=== PATIENT | female | born 1945 | race Two or more races ===

== ENCOUNTER 2017-03-23 12:50 | Emergency (ER) | payer MEDICARE, OTHER ==
[2017-03-23] MEDS ORDERED: DIAZEPAM 5 MG/ML 2 ML INJ IVP STA (13:24)
[2017-03-23] MEDS ORDERED: MECLIZINE 25 MG TAB PO STA (13:24)
--- NOTE | 2017-03-23 13:26 | ED ---
General Adult HPI - General Chief complaint: Dizziness Stated complaint: dizziness Time Seen by Provider: 03/23/17 13:00 Source: patient, RN notes reviewed Mode of arrival: ambulatory Limitations: no limitations - History of Present Illness Initial comments: This is a 71-year-old female presents emergency department with past medical history significant for diabetes. Patient does not speak any [place]ian and daughter only speaks broken Pan[place]ian. From what I can gather the patient has been experiencing some dizzy spells today not the sensation that she's passing out but that she might fall over without grabbing onto something. Patient states she also has a slight right-sided headache as well as some mild nausea. Patient denies any recent fever chills or cough. Patient denies any recent trauma or injury. Patient denies any chest pain palpitations difficulty breathing or shortness of breath per patient denies any abdominal pain patient denies any vomiting or diarrhea. Patient denies any back pain. Patient denies any extremity pain or lack of range of motion. - Related Data Home Medications Medication Instructions Recorded Confirmed Aspirin EC [Ecotrin Low Dose] 81 mg PO DAILY 03/23/17 03/23/17 Butalb/Acetaminophen/Caffeine 1 - 2 tab PO DAILY PRN 03/23/17 03/23/17 [Fioricet 50-325-40] Citalopram Hydrobromide [CeleXA] 20 mg PO DAILY 03/23/17 03/23/17 Esomeprazole Magnesium 40 mg PO DAILY 03/23/17 03/23/17 Insulin Glargine,Hum.rec.anlog 20 unit SQ HS 03/23/17 03/23/17 [Lantus Solostar] Insulin Glargine,Hum.rec.anlog 100 unit SQ DAILY 03/23/17 03/23/17 [Lantus Solostar] Lisinopril [Zestril] 10 mg PO DAILY 03/23/17 03/23/17 Loratadine [Claritin] 10 mg PO HS 03/23/17 03/23/17 Pioglitazone [Actos] 30 mg PO DAILY 03/23/17 03/23/17 chlordiazePOXIDE HCL 25 mg PO BID 03/23/17 03/23/17 glyBURIDE/METFORMIN HCL 1 tab PO AC-BID 03/23/17 03/23/17 [glyBURIDE/METFORMIN HCL 5-500 mg] Previous Rx's Medication Instructions Recorded Meclizine [Antivert] 25 mg PO TID #20 tab 03/23/17 Allergies Allergy/AdvReac Type Severity Reaction Status Date / Time No Known Allergies Allergy Verified 03/23/17 13:00 Review of Systems ROS Statement: Those systems with pertinent positive or pertinent negative responses have been documented in the HPI. ROS Other: All systems not noted in ROS Statement are negative. Past Medical History Past Medical History: Diabetes Mellitus History of Any Multi-Drug Resistant Organisms: None Reported Past Surgical History: Section Past Psychological History: No Psychological Hx Reported Smoking Status: Never smoker Past Alcohol Use History: None Reported Past Drug Use History: None Reported General Exam - General Exam Comments Initial Comments: GENERAL: Patient is well-developed and well-nourished. Patient is nontoxic and well- hydrated and is in no acute distress. ENT: Neck is soft and supple. No significant lymphadenopathy is noted. Oropharynx is clear. Moist mucous membranes. Neck has full range of motion without eliciting any pain. EYES: The sclera were anicteric and conjunctiva were pink and moist. Extraocular movements were intact and pupils were equal round and reactive to light. Eyelids were unremarkable. PULMONARY: Unlabored respirations. Good breath sounds bilaterally. No audible rales rhonchi or wheezing was noted. CARDIOVASCULAR: There is a regular rate and rhythm without any murmurs gallops or rubs. ABDOMEN: Soft and nontender with normal bowel sounds. No palpable organomegaly was noted. There is no palpable pulsatile mass. SKIN: Skin is clear with no lesions or rashes and otherwise unremarkable. NEUROLOGIC: Patient is alert and oriented x3. Cranial nerves II through XII are grossly intact. Motor and sensory are also intact. Normal speech, volume and content. Symmetrical smile. Cerebellar exam grossly intact. MUSCULOSKELETAL: Normal extremities with adequate strength and full range of motion. No lower extremity swelling or edema. No calf tenderness. LYMPHATICS: No significant lymphadenopathy is noted PSYCHIATRIC: Language barrier unable to assess Limitations: no limitations Course Vital Signs 03/23/17 03/23/17 03/23/17 12:56 14:00 15:03 Temperature 98.7 F Pulse Rate 98 87 80 Respiratory 16 16 18 Rate Blood Pressure 122/63 141/72 134/63 O2 Sat by Pulse 98 98 97 Oximetry Medical Decision Making - Medical Decision Making EKG shows normal sinus rhythm at 92 bpm MI interval is 142 QRS is 80 QT interval 370 QTC is 457. Patient's EKG shows no ST segment elevation or depression. CT of the brain shows no acute normalities. Chest x-ray shows no acute abnormality. Patient states the dizziness. But she still has a little bit of pressure in the right side of her head. Patient has no deficit she's no distress and she ambulates without problem. - Lab Data Result diagrams: 03/23/17 13:22 03/23/17 13:22 Lab Results 03/23/17 03/23/17 03/23/17 Range/Units 13:22 13:22 13:22 WBC 4.2 (3.8-10.6) k/uL RBC 4.41 (3.80-5.40) m/uL Hgb 12.5 (11.4-16.0) gm/dL Hct 40.0 (34.0-46.0) % MCV 90.7 (80.0-100.0) fL MCH 28.3 (25.0-35.0) pg MCHC 31.1 (31.0-37.0) g/dL RDW 13.3 (11.5-15.5) % Plt Count 375 (150-450) k/uL Neutrophils % (Manual) 43 % Lymphocytes % (Manual) 49 % Monocytes % (Manual) 7 % Eosinophils % (Manual) 1 % Neutrophils # (Manual) 1.81 (1.3-7.7) k/uL Lymphocytes # (Manual) 2.06 (1.0-4.8) k/uL Monocytes # (Manual) 0.29 (0-1.0) k/uL Eosinophils # (Manual) 0.04 (0-0.7) k/uL Nucleated RBCs 0 (0-0) /100 WBC Manual Slide Review Performed RBC Morphology Normal Hypochromasia Slight PT (9.0-12.0) sec INR (<1.2) APTT (22.0-30.0) sec Sodium 138 (137-145) mmol/L Potassium 4.8 (3.5-5.1) mmol/L Chloride 101 (98-107) mmol/L Carbon Dioxide 26 (22-30) mmol/L Anion Gap 11 mmol/L BUN 21 H (7-17) mg/dL Creatinine 0.67 (0.52-1.04) mg/dL Est GFR (MDRD) Af Amer >60 (>60 ml/min/1.73 sqM) Est GFR (MDRD) Non-Af >60 (>60 ml/min/1.73 sqM) Glucose 288 H (74-99) mg/dL Calcium 9.3 (8.4-10.2) mg/dL Magnesium 1.6 (1.6-2.3) mg/dL Total Bilirubin 0.1 L (0.2-1.3) mg/dL AST 18 (14-36) U/L ALT 28 (9-52) U/L Alkaline Phosphatase 50 (38-126) U/L Total Creatine Kinase 23 L (30-135) U/L CK-MB (CK-2) <0.2 (0.0-2.4) ng/mL CK-MB (CK-2) Rel Index Troponin I <0.012 (0.000-0.034) ng/mL Total Protein 7.1 (6.3-8.2) g/dL Albumin 3.9 (3.5-5.0) g/dL 03/23/17 Range/Units 13:22 WBC (3.8-10.6) k/uL RBC (3.80-5.40) m/uL Hgb (11.4-16.0) gm/dL Hct (34.0-46.0) % MCV (80.0-100.0) fL MCH (25.0-35.0) pg MCHC (31.0-37.0) g/dL RDW (11.5-15.5) % Plt Count (150-450) k/uL Neutrophils % (Manual) % Lymphocytes % (Manual) % Monocytes % (Manual) % Eosinophils % (Manual) % Neutrophils # (Manual) (1.3-7.7) k/uL Lymphocytes # (Manual) (1.0-4.8) k/uL Monocytes # (Manual) (0-1.0) k/uL Eosinophils # (Manual) (0-0.7) k/uL Nucleated RBCs (0-0) /100 WBC Manual Slide Review RBC Morphology Hypochromasia PT 11.2 (9.0-12.0) sec INR 1.1 (<1.2) APTT 24.6 (22.0-30.0) sec Sodium (137-145) mmol/L Potassium (3.5-5.1) mmol/L Chloride (98-107) mmol/L Carbon Dioxide (22-30) mmol/L Anion Gap mmol/L BUN (7-17) mg/dL Creatinine (0.52-1.04) mg/dL Est GFR (MDRD) Af Amer (>60 ml/min/1.73 sqM) Est GFR (MDRD) Non-Af (>60 ml/min/1.73 sqM) Glucose (74-99) mg/dL Calcium (8.4-10.2) mg/dL Magnesium (1.6-2.3) mg/dL Total Bilirubin (0.2-1.3) mg/dL AST (14-36) U/L ALT (9-52) U/L Alkaline Phosphatase (38-126) U/L Total Creatine Kinase (30-135) U/L CK-MB (CK-2) (0.0-2.4) ng/mL CK-MB (CK-2) Rel Index Troponin I (0.000-0.034) ng/mL Total Protein (6.3-8.2) g/dL Albumin (3.5-5.0) g/dL Disposition Clinical Impression: Vertigo, Dehydration Disposition: HOME SELF-CARE Condition: Good Instructions: Vertigo (ED) Prescriptions: Meclizine [Antivert] 25 mg PO TID #20 tab Referrals: Eron Olivares MD [Primary Care Provider] - 1-2 days Time of Disposition: 15:19
[2017-03-23 13:43] LABS: CH 27.4; CHCM 30.3; HDW 1.96; HGB 12.5 gm/dL (11.4-16.0); Hypochromasia Slight; MCH 28.3 pg (25.0-35.0); MCHC 31.1 g/dL (31.0-37.0); MCV 90.7 fL (80.0-100.0); Mean Platelet Volume 7.6; RBC 4.41 m/uL (3.80-5.40); RDW 13.3 % (11.5-15.5); WBC 4.2 k/uL (3.8-10.6); WBC (Perox) 4.12
[2017-03-23 13:48] LABS: INR 1.1 (<1.2); Partial Thromboplastin Time 24.6 sec (22.0-30.0); Prothrombin Time 11.2 sec (9.0-12.0)
[2017-03-23 13:49] LABS: ALT 28 U/L (9-52); AST 18 U/L (14-36); Alkaline Phosphatase 50 U/L (38-126); Anion Gap 11 mmol/L; Blood Urea Nitrogen 21 mg/dL (7-17); Calcium 9.3 mg/dL (8.4-10.2); Carbon Dioxide 26 mmol/L (22-30); Chloride 101 mmol/L (98-107); Glucose 288 mg/dL (74-99); Magnesium 1.6 mg/dL (1.6-2.3); Non-African American GFR(MDRD) >60 (>60 ml/min/1.73 sqM); Potassium 4.8 mmol/L (3.5-5.1); Sodium 138 mmol/L (137-145); Total Bilirubin 0.1 mg/dL (0.2-1.3); Total Protein 7.1 g/dL (6.3-8.2)
[2017-03-23 13:59] LABS: Creatine Kinase 23 U/L (30-135)
[2017-03-23 14:00] LABS: Add Differential Manual Differential
[2017-03-23 14:02] LABS: Manual Review Performed; Nucleated Red Blood Cells 0 /100 WBC (0-0); Total Cells Counted 100
[2017-03-23 14:03] LABS: RBC Morphology Normal
--- NOTE | 2017-03-23 14:11 | CT ---
EXAMINATION TYPE: CT brain wo con DATE OF EXAM: 03/23/2017 COMPARISON: NONE HISTORY: Dizziness CT DLP: 981.[address] of the brain was performed. The ventricles, basal cisterns and sulci overlying the cerebral convexities demonstrate mild enlargem ent. There is no evidence for intracranial hemorrhage or sulcal effacement. There is decreased attenuation about the periventricular white matter and deep white matter of both c erebral hemispheres, compatible with chronic small vessel ischemia. Differential diagnosis does inclu de demyelination. No mass effects are seen.No midline shift. Osseous calvarium is intact. If symptoms persist consider MRI. IMPRESSION: 1. Age related atrophic and chronic small vessel ischemic change without acute intracranial process s een at this time.
[2017-03-23 14:12] LABS: Creatine Kinase MB <0.2 ng/mL (0.0-2.4); Troponin I <0.012 ng/mL (0.000-0.034)
--- NOTE | 2017-03-23 14:36 | XR ---
EXAMINATION TYPE: XR chest 2V DATE OF EXAM: 03/23/2017 COMPARISON: NONE HISTORY: Shortness of breath TECHNIQUE: Frontal and lateral views of the chest are obtained. FINDINGS: Scattered senescent parenchymal changes noted. Hyperinflation compatible with COPD. No evidence for infiltrate. No evidence for atelectasis. Heart size is stable. Mediastinal structures are stable and grossly unremarkable. No evidence for hilar prominence. Degenerative changes dorsal spine. IMPRESSION: 1. No evidence for acute pulmonary disease.
[2017-03-23 15:03] VITALS: BP 134/63; PULSE 80; RESP 18
[2017-03-23 15:30] VITALS: TEMP 97.8
== END 2017-03-23 15:31 | disposition home or self-care (01) ==
LOC: EC 12:50
DX: E86.0 Dehydration (principal); R42 Dizziness and giddiness; R51 Headache; R11.0 Nausea; E11.9 Type 2 diabetes mellitus without complications; Z79.4 Long term (current) use of insulin; Z79.82 Long term (current) use of aspirin; Z79.899 Other long term (current) drug therapy
CPT/HCPCS: 99284 ×2; 96374 ×2; 36415; 93005; 80053; 82550; 82553; 83735; 84484; 85025; 85610; 85730; 71020; 70450; J3360

== ENCOUNTER 2019-08-26 | Emergency (ER) | payer MEDICARE, OTHER | END 2019-08-26 17:31 | disposition home or self-care (01) | CPT/HCPCS: 99285; 96374; 96375; 96361 ×2; 36415; 93005; 80053; 84484; 85025; 85610; 81003; 71046; 70450; J2765; J1885 ==